=== PATIENT | male | born 1940 | race Caucasian/White ===

== ENCOUNTER → 2019-12-31 11:04 | Outpatient (CLI) | payer MEDICARE, SELFPAY ==
[2020-01-01 03:33] LABS: COVID19 Sendout Not Detected (Not Detect)
== END ==
PROVIDERS: Visit Provider Physician Assistant
DX: Z01.812 Encounter for preprocedural laboratory examination (principal)
CPT/HCPCS: 87635

== ENCOUNTER 2023-08-19 11:46 | Emergency (ER) | payer MEDICARE, SELFPAY ==
[2023-08-19 12:20] VITALS: BP 139/89; PULSE 78; RESP 16; TEMP 36.4; O2SAT 97; BMI 30.4
[2023-08-19 12:35] LABS: Urine Volume 10mL (spun)
[2023-08-19 12:47] VITALS: BP 150/82; PULSE 78; TEMP 36.7; O2SAT 96
[2023-08-19 13:20] LABS: Bacteria Urine Many (>30); Culture Indicated Urine Specimen Cultured; RBC Urine 30-100/HPF (0-5/HPF); Squamous Epithelial Cell Urine 1-5 /HPF (0-5/HPF); WBC Urine 30-100/HPF (0-5/HPF)
--- NOTE | 2023-08-19 13:58 | ED_ITS ---
HPI - Male Genitourinary <Hanny Waller PA-C - Last Filed: 08/19/23 14:03> General Chief complaint: Urogenital-Male Stated complaint: poss uti/bladder infection per pt Time Seen by Provider: 08/19/23 13:29 Source: patient Mode of arrival: Ambulatory History of Present Illness HPI Narrative: Patient is an 82-year-old male with history of hypertension, elevated cholesterol, hypothyroid who presents with 3 days of dysuria, urinary dribbling, difficulty voiding and tactile fever. Endorses history of urinary tract infection 1 year ago. History of shayy in his prostate to help him void. Denies low back pain, nausea, vomiting or confusion. Related Data Home Medications Medication Instructions Recorded Confirmed CA PANTOTHENATE/FOLIC ACID/VIT 1 tab PO QDAY ##0 01/15/12 (MULTIVITAMIN) LEVOTHYROXINE SODIUM 0.1 mg PO QDAY ##0 01/15/12 VITAMIN D (Vitamin D3) 1,000 unit PO QDAY ##0 01/15/12 aspirin 81 mg chewable tablet 81 mg PO 0800 ##0 01/15/12 fenofibrate nanocrystallized 48 mg 48 mg PO QDAY ##0 01/15/12 tablet (Tricor) Previous Rx's Medication Instructions Recorded sulfamethoxazole 800 1 tab PO BID #14 tabs 08/19/23 mg-trimethoprim 160 mg tablet (Bactrim DS) Allergies Allergy/AdvReac Type Severity Reaction Status Date / Time venom-honey bee Allergy Intermediate SWELLING Unverified 11/15/22 09:13 [BEE VENOM (HONEY BEE)] NO BREATHING PROBLEMS, YELLOW JACKETS TOO Review of Systems <Hanny Waller PA-C - Last Filed: 08/19/23 14:03> Review of Systems ROS Unobtainable: All systems reviewed & are unremarkable except as noted in HPI and below Patient History <Hanny Waller PA-C - Last Filed: 08/19/23 14:03> Social History Smoking Status: Never smoker Smoking Status: Never smoker Substance Use Type: does not use Exam <Hanny Waller PA-C - Last Filed: 08/19/23 14:03> Narrative Exam Narrative: GENERAL: 82 year old patient appears stated age. Well-developed patient, in no acute distress. NEURO: AOx3. HEAD: Atraumatic. Normocephalic. EYES: Pupils equal round and reactive. Extraocular motions intact. No scleral icterus. No injection or drainage. ENT: Nose without bleeding or purulent drainage. Airway patent. RESPIRATORY: No distress GASTROINTESTINAL: Abdomen soft, non-tender, no CVA tenderness. EXTREMITIES: No edema or joint tenderness. SKIN: No rash or erythema of visible areas Initial Vital Signs Initial Vital Signs: Vital Signs Temperature 97.5 F L 08/19/23 12:20 Pulse Rate 78 08/19/23 12:20 Respiratory Rate 16 08/19/23 12:20 Blood Pressure 139/89 08/19/23 12:20 Pulse Oximetry 97 08/19/23 12:20 Oxygen Delivery Method Room Air 08/19/23 12:20 <Betty Dye DO - Last Filed: 08/22/23 01:42> Initial Vital Signs Initial Vital Signs: Vital Signs Temperature 97.5 F L 08/19/23 12:20 Pulse Rate 78 08/19/23 12:20 Respiratory Rate 16 08/19/23 12:20 Blood Pressure 139/89 08/19/23 12:20 Pulse Oximetry 97 08/19/23 12:20 Oxygen Delivery Method Room Air 08/19/23 12:20 Course <Hanny Waller PA-C - Last Filed: 08/19/23 14:03> Orders Ordered: ED Orders 08/19/23 12:28 Urine Culture Stat Urine Microscopic Stat Vital Signs Vital signs: Vital Signs - 8 hr 08/19/23 12:20 08/19/23 12:47 Temperature 97.5 F L 98.0 F Pulse Rate 78 78 Respiratory Rate 16 Blood Pressure 139/89 150/82 H Pulse Oximetry 97 96 Oxygen Delivery Method Room Air Room Air <Betty Dye DO - Last Filed: 08/22/23 01:42> Orders Ordered: ED Orders 08/19/23 12:28 Urine Culture Stat Urine Microscopic Stat Vital Signs Vital signs: Vital Signs - 8 hr 08/19/23 12:20 08/19/23 12:47 Temperature 97.5 F L 98.0 F Pulse Rate 78 78 Respiratory Rate 16 Blood Pressure 139/89 150/82 H Pulse Oximetry 97 96 Oxygen Delivery Method Room Air Room Air [facility] Male Genitourinary <Hanny Waller PA-C - Last Filed: 08/19/23 14:03> Lab Data Labs: Lab Results 08/19/23 Range/Units 12:28 Urine RBC 30-100/hpf H (0-5/HPF) Urine WBC 30-100/hpf H (0-5/HPF) Ur Squamous Epith Cells 1-5 /hpf (0-5/HPF) Urine Bacteria Many (>30) H (None) Ur Culture Indicated? Specimen cultured Vol Urine Centrifuged 10ml (spun) Urine Dip Bedside Urine Glucose Negative Bedside Urine Bilirubin - Negative Bedside Urine Ketone - Negative Urine Specific [place] 1.020 Bedside Urine Occult Blood +++ Bedside Urine pH 6.0 Bedside Urine Protein + 30 Bedside Urine Urobilinogen - Negative Bedside Urine Nitrite + Positive Bedside Urine Leukocytes ++ 125 Esterase MDM Narrative Medical decision making narrative: Multiple etiologies for patient's symptoms considered including, but not limited to: Urinary tract infection, pyelonephritis, sepsis, prostatitis History, physical exam findings and testing consistent with urinary tract infection. Afebrile and VS within normal limits, no CVA tenderness or low back pain, making pyelonephritis less likely. Will prescribe antibiotics, bactrim x 7 days. Will notify patient if urine culture is not sensitive to the prescribed antibiotic, necessitating a medication change. Advised to increase oral fluids, rest as needed, and complete course of prescribed antibiotics. Return to ER if develops flank pain, fever/chills or other concerning symptoms. If has recurrent UTI, advised to follow up with PCP regarding possible referral to Urology versus starting on Flomax. Patient not interested in starting Flomax today. Patient's symptoms improved over duration of stay with above-stated therapies. Findings and discharge diagnosis discussed with patient/family followed by verbalization of understanding Return precautions discussed with patient/family whom verbalize understanding of diagnosis and plan <Betty Dye DO - Last Filed: 08/22/23 01:42> Lab Data Labs: Lab Results 08/19/23 Range/Units 12:28 Urine RBC 30-100/hpf H (0-5/HPF) Urine WBC 30-100/hpf H (0-5/HPF) Ur Squamous Epith Cells 1-5 /hpf (0-5/HPF) Urine Bacteria Many (>30) H (None) Ur Culture Indicated? Specimen cultured Vol Urine Centrifuged 10ml (spun) Urine Dip Bedside Urine Glucose Negative Bedside Urine Bilirubin - Negative Bedside Urine Ketone - Negative Urine Specific [place] 1.020 Bedside Urine Occult Blood +++ Bedside Urine pH 6.0 Bedside Urine Protein + 30 Bedside Urine Urobilinogen - Negative Bedside Urine Nitrite + Positive Bedside Urine Leukocytes ++ 125 Esterase Discharge Plan Departure Patient Disposition: Home Clinical Impression: Urinary tract infection Qualifiers: Urinary tract infection type: acute cystitis Hematuria presence: with hematuria Qualified Code(s): N30.01 - Acute cystitis with hematuria Instructions: DI for Urinary Tract Infection (UTI), DI for Urinary Retention in Men Activity Restrictions/Additional Instructions: *You have been diagnosed with urinary tract infection. I have prescribed a seven day course of antibiotics to treat this infection. Please be sure to drink plenty of water and get rest. Take all the medicine even if you are feeling better. If you were feeling worse after taking the antibiotics for 48 hours and or having increased symptoms including fever, blood in your urine, back pain, please be reassessed by healthcare provider. *What to do: *Please continue to take your regular medications as directed. [X] New medication prescriptions sent to your pharmacy: [facility] [ ] New medication written as a paper prescription [ ] No new medications given *Please follow up with your primary care provider in 2-3 days, call for an appointment. Let them know you were seen in the Emergency Department and that we ask that you be seen in follow up. We will electronically transmit a record of today's note if your PCP is in our system *If you do not have a primary care provider please contact the [facility] Resource line at [phone]. They will ask some questions about your medical history and help get you set up with a doctor in the community. *Return to Emergency Department if you should have any new, worsening or concerning symptoms, such as [fever greater than 101 F, shaking chills, worsening pain, persistent vomiting or other concerning symptoms]. Prescriptions: New sulfamethoxazole-trimethoprim [Bactrim DS] 800-160 mg tablet 1 tab PO BID Qty: 14 0RF No Action LEVOTHYROXINE SODIUM 0.1 mg PO QDAY Qty: 0 aspirin 81 MG tablet,chewable 81 mg PO 0800 Qty: 0 fenofibrate nanocrystallized [Tricor] 48 MG tablet 48 mg PO QDAY Qty: 0 VITAMIN D (Vitamin D3) 1,000 unit PO QDAY Qty: 0 CA PANTOTHENATE/FOLIC ACID/VIT (MULTIVITAMIN) 1 tab PO QDAY Qty: 0 Referrals: Miscellaneous,Doctor, MD [Primary Care Provider] - Stand Alone Forms: Patient Portal/API ED Sign-out <Betty Dye DO - Last Filed: 08/22/23 01:42> Cosign ED Attending Cosignature Attestation: I was available for consultation.
[2023-08-19 14:02] VITALS: BP 153/87; PULSE 74; O2SAT 95
== END 2023-08-19 14:02 | disposition home or self-care (01) ==
PROVIDERS: Emergency Medicine; Emergency Provider Physician Assistant
DX: N30.01 Acute cystitis with hematuria (principal)
CPT/HCPCS: 51798; 81003; 81015; 87077; 87086; 87186; 99282

== ENCOUNTER 2023-09-12 09:25 | Emergency (ER) | payer MEDICARE, SELFPAY ==
[2023-09-12 09:34] VITALS: BP 141/86; PULSE 74; RESP 20; TEMP 37; O2SAT 98; BMI 30.2
--- NOTE | 2023-09-12 09:43 | PC.NURSE ---
Pt came to the emergency dept today because he is having re-occurring sx of UTI. Pt was seen here approximately 2 weeks ago for UTI and was sent home with a prescription for abx. Pt states that the medication worked and his sx cleared up, but he started having burning, frequency, pain and urgency with urination again yesterday. Pt denies any fever at this time. Pt a&ox4.
--- NOTE | 2023-09-12 10:50 | ED_ITS ---
HPI - Male Genitourinary General Chief complaint: Urogenital-Male Stated complaint: UTI Time Seen by Provider: 09/12/23 09:50 Source: patient Mode of arrival: Ambulatory History of Present Illness HPI Narrative: Patient 82-year-old male history of hypertension hyperlipidemia hypothyroid presents today with 3 days frequent nocturnal urination with significant burning. He denies any fever flank pain nausea. He previously had a UTI in [facility] 2023 he was given 7 days of Bactrim. He feels like it is back. He was seen by his urologist 4 days ago when he was having some symptoms and was tested and was told it was negative. However his symptoms continued. Denies any other some Related Data Home Medications Medication Instructions Recorded Confirmed CA PANTOTHENATE/FOLIC ACID/VIT 1 tab PO QDAY ##0 01/15/12 (MULTIVITAMIN) LEVOTHYROXINE SODIUM 0.1 mg PO QDAY ##0 01/15/12 VITAMIN D (Vitamin D3) 1,000 unit PO QDAY ##0 01/15/12 aspirin 81 mg chewable tablet 81 mg PO 0800 ##0 01/15/12 fenofibrate nanocrystallized 48 mg 48 mg PO QDAY ##0 01/15/12 tablet (Tricor) Previous Rx's Medication Instructions Recorded sulfamethoxazole 800 1 tab PO BID #14 tabs 08/19/23 mg-trimethoprim 160 mg tablet (Bactrim DS) cephalexin 500 mg capsule 500 mg PO BID 7 days #14 caps 09/12/23 Allergies Allergy/AdvReac Type Severity Reaction Status Date / Time venom-honey bee Allergy Intermediate SWELLING Unverified 11/15/22 09:13 [BEE VENOM (HONEY BEE)] NO BREATHING PROBLEMS, YELLOW JACKETS TOO Patient History Social History Smoking Status: Never smoker Smoking Status: Never smoker alcohol intake frequency: holidays/special occasions only Substance Use Type: does not use Exam Initial Vital Signs Initial Vital Signs: Vital Signs Temperature 98.6 F 09/12/23 09:34 Pulse Rate 74 09/12/23 09:34 Respiratory Rate 20 09/12/23 09:34 Blood Pressure 141/86 H 09/12/23 09:34 Pulse Oximetry 98 09/12/23 09:34 Oxygen Delivery Method Room Air 09/12/23 09:34 GENERAL: Alert pleasant 82-year-old male and in no acute distress. HEENT: Head atraumatic,EOMI, pupils reactive, face symmetric, moist mucous membranes CARDIOVASCULAR: Regular rate and rhythm without murmurs, rubs or gallops. RESPIRATORY: Breath sounds equal bilaterally, no wheezes rales or rhonchi. ABDOMEN: Soft, nontender. Normoactive bowel sounds all 4 quadrants. No guarding or rebound. : Minimal right CVA tenderness EXTREMITIES: Normal range of motion, no clubbing or edema. Neurovascularly intact NEUROLOGICAL: Alert and oriented x4.Normal gait and speech. SKIN: Warm, dry, no laceration, no petechiae, no rashes or lesions. Course Orders Ordered: ED Orders 09/12/23 10:02 Urine Microscopic Stat Vital Signs Vital signs: Vital Signs - 8 hr 09/12/23 09:34 09/12/23 11:22 Temperature 98.6 F 98.6 F Pulse Rate 74 74 Respiratory Rate 20 20 Blood Pressure 141/86 H 139/81 Pulse Oximetry 98 99 Oxygen Delivery Method Room Air Room Air MDM - Male Genitourinary Lab Data Labs: Lab Results 09/12/23 Range/Units 10:02 Urine RBC 0-1/hpf D (0-5/HPF) Urine WBC 10-30/hpf H (0-5/HPF) Ur Squamous Epith Cells 5-10 /hpf H (0-5/HPF) Urine Bacteria Moderate (10-30) H (None) Ur Culture Indicated? Cult not indicated Vol Urine Centrifuged 10ml (spun) Urine Dip Bedside Urine Glucose Negative Bedside Urine Bilirubin - Negative Bedside Urine Ketone - Negative Urine Specific [place] 1.015 Bedside Urine Occult Blood +++ Bedside Urine pH 6.0 Bedside Urine Protein + 30 Bedside Urine Urobilinogen - Negative Bedside Urine Nitrite - Negative Bedside Urine Leukocytes +++ 500 Esterase [facility] Narrative Medical decision making narrative: Patient 82-year-old male with prior history of UTI and recent 1 last month presents today again with UTI symptoms. He has afebrile no evidence of SIRS or severe sepsis. He has a urologist apparently does get UTIs. At this time will treat him with Keflex encourage close outpatient follow-up. Urine Culture Final 08/21/23-812 Organism 1 Citrobacter diversus [place] Count >100,000 CFU/ml Action to follow No Further Workup 1. Citrobacter diversus M.I.C. RX --------- --- * Amoxicillin/Clavulanate <=2 S * Cefazolin <=4 S * Cefepime <=1 S * Ceftazidime <=1 S * Ceftriaxone <=1 S * Ciprofloxacin <=0.25 S * Ertapenem <=0.5 S * Gentamicin <=1 S * Imipenem <=0.25 S * Levofloxacin <=0.12 S * Nitrofurantoin <=16 S * Tobramycin <=1 S * Trimethoprim/Sulfamethoxazole <=20 S * Piperacillin/Tazobactam <=4 S Discharge Plan Departure Patient Disposition: Home Clinical Impression: Urinary tract infection Instructions: DI for Urinary Tract Infection (UTI) Activity Restrictions/Additional Instructions: *You have been diagnosed with UTI *What to do: At this time you do need follow-up with your primary care provider may require blood work or further evaluation with Urology *Continue to take medications as directed Keflex 500 mg twice a day for 7 days--> [facility] *Follow up with your primary care provider in 2-3 days or call [phone] *Return to ER if you should have fever chills pain nausea vomiting, confusion weakness or any new, worsening or concerning symptoms Prescriptions: New cephalexin 500 mg capsule 500 mg PO BID 7 Days Qty: 14 0RF No Action LEVOTHYROXINE SODIUM 0.1 mg PO QDAY Qty: 0 aspirin 81 MG tablet,chewable 81 mg PO 0800 Qty: 0 fenofibrate nanocrystallized [Tricor] 48 MG tablet 48 mg PO QDAY Qty: 0 VITAMIN D (Vitamin D3) 1,000 unit PO QDAY Qty: 0 CA PANTOTHENATE/FOLIC ACID/VIT (MULTIVITAMIN) 1 tab PO QDAY Qty: 0 sulfamethoxazole-trimethoprim [Bactrim DS] 800-160 mg tablet 1 tab PO BID Qty: 14 0RF Referrals: Miscellaneous,Doctor, MD [Primary Care Provider] - Stand Alone Forms: Patient Portal/API
[2023-09-12 11:19] LABS: Bacteria Urine Moderate (10-30); Culture Indicated Urine Cult Not Indicated; RBC Urine 0-1/HPF (0-5/HPF); Squamous Epithelial Cell Urine 5-10 /HPF (0-5/HPF); Urine Volume 10mL (spun); WBC Urine 10-30/HPF (0-5/HPF)
[2023-09-12 11:22] VITALS: BP 139/81; PULSE 74; RESP 20; TEMP 37; O2SAT 99
== END 2023-09-12 11:23 | disposition home or self-care (01) ==
PROVIDERS: Emergency Provider Emergency Medicine
DX: N39.0 Urinary tract infection, site not specified (principal)
CPT/HCPCS: 81003; 81015; 99281; 99283